=== PATIENT | male | born 1955 | race Caucasian/White ===

== ENCOUNTER 2018-09-03 09:57 | Day surgery (SDC) | END 2018-09-03 12:05 | disposition home or self-care (01) ==

== ENCOUNTER 2018-12-02 12:08 | Emergency (ER) | payer SELFPAY ==
[~2018-12-02] VITALS: Ht 162.6 cm; Wt 76.7 kg
[~2018-12-02 12:08] MED LIST: BENAZAPRIL; VITAMINS
[2018-12-02 12:14] VITALS: Ht 162.6 cm; Wt 76.7 kg
[2018-12-02] MEDS ORDERED: LIDOCAINE 1% (MDV) 20 ML INJ SC ONE (13:00)
--- NOTE | 2018-12-02 13:14 | EN ---
Date/Time of Note Date/Time of Note DATE: 12/02/18 TIME: 13:13 ER Progress Note Patient seen with TIAGO Thapa and evaluated independently. Patient is here for a sebaceaous cyst on his back. He states that with the sebaceous cyst on his back, he is having pain to the left front part of his chest. The pain is localized to the left anterior chest wall does not radiate. Pain is nonexertional and associated with no shortness of breath, fevers, chills, sputum production or any cardiac symptoms. He states the pain is related to the cyst. EKG reviewed by myself was normal Normal sinus rhythm Normal axis and intervals No ST elevation or depression Impression: Normal EKG Plan: Sebaceous cyst will be drained. Patient will have a troponin drawn and will be reassessed after the troponin and removal of the cyst to reevaluate. MAMTA GARCIA Dec 02, 2018 13:14
--- NOTE | 2018-12-02 14:25 | ERD ---
ER Documentation Chief Complaint Chief Complaint back abscess x 1 week HPI Patient is a 63-year-old male with a past medical history of hypertension who presents the ER for concerns of an abscess on his back for the last 3-4 months. Patient states over the last week the abscess has become larger and more painful. Patient is here with his daughter who states that the abscess site feels warm. Patient has no fevers or chills. Patient is also reporting anterior chest pain. He states he has had this pain for the last week. He denies any exertional pain. He denies any radiating pain. Patient denies any shortness of breath, left upper extremity pain, nausea, vomiting, diaphoresis, cough, hemoptysis or LOC. Patient feels as if his abscess pain is related to his chest pain. Patient denies any abdominal pain. Patient reports taking benazepril for his high blood pressure. Patient denies any headache, blurry vision. ROS All systems reviewed and are negative except as per history of present illness. Medications Home Meds Active Scripts Cephalexin* (Keflex*) 500 Mg Capsule, 500 MG PO BID for 7 Days, CAP Prov:ROMY MOHAMUD PA-C 12/02/18 Sulfamethoxazole/Trimethoprim* (Bactrim Ds* Tablet) 1 Each Tablet, 1 TAB PO BID, #14 TAB Prov:ROMY MOHAMUD PA-C 12/02/18 Reported Medications [Vitamins] No Conflict Check 09/03/18 [Benazapril] No Conflict Check 09/03/18 Allergies Allergies: Coded Allergies: No Known Allergy (Unverified , 09/03/18) PMhx/Soc History of Surgery: No Anesthesia Reaction: No Hx Neurological Disorder: No Hx Respiratory Disorders: No Hx Cardiac Disorders: Yes (HTN) Hx Psychiatric Problems: No Hx Miscellaneous Medical Probl: No Hx Alcohol Use: No Hx Substance Use: No Hx Tobacco Use: No Smoking Status: Never smoker FmHx Family History: No diabetes Physical Exam Vitals Vital Signs Date Temp Pulse Resp B/P (MAP) Pulse Ox O2 O2 Flow FiO2 Time Delivery Rate 12/02/18 98.2 76 18 123/68 97 Room Air 15:54 (86) 12/02/18 99.3 90 18 177/84 94 12:14 (115) Physical Exam GENERAL: Well-developed, well-nourished male. Appears in no acute distress. Speaking in full sentences HEAD: Normocephalic, atraumatic. EYES: Pupils are equally reactive bilaterally. EOMs grossly intact. No conjunct ival erythema. ENT: Moist mucous membranes. No uvula deviation. No kissing tonsils. NECK: Supple. No meningismus. Normal range of motion of the neck. LUNG: Clear to auscultation bilaterally. No rhonchi, wheezing, rales or coarse breath sounds. HEART: Regular rate and rhythm. No murmurs, rubs or gallops. EXTREMITIES: Equal pulses bilaterally. No peripheral clubbing, cyanosis or edema. No unilateral leg swelling. NEUROLOGIC: Alert and oriented. Moving all four extremities without any difficulty. Normal speech. Steady gait. SKIN: 1.5 cm round, abscess noted in the center of the patient's upper back. Slight surrounding erythema. Slight warmth. No streaking. Positive fluctuance. Result Diagram: 12/02/18 1410 12/02/18 1410 Results 24 hrs Laboratory Tests Test 12/02/18 14:10 White Blood Count 9.8 10^3/ul Red Blood Count 5.51 10^6/ul Hemoglobin 16.3 g/dl Hematocrit 47.5 % Mean Corpuscular Volume 86.2 fl Mean Corpuscular Hemoglobin 29.6 pg Mean Corpuscular Hemoglobin Concent 34.3 g/dl Red Cell Distribution Width 11.8 % Platelet Count 235 10^3/UL Mean Platelet Volume 10.2 fl Immature Granulocytes % 1.000 % Neutrophils % 67.0 % Lymphocytes % 21.6 % Monocytes % 8.0 % Eosinophils % 1.8 % Basophils % 0.6 % Nucleated Red Blood Cells % 0.0 /100WBC Immature Granulocytes # 0.100 10^3/ul Neutrophils # 6.6 10^3/ul Lymphocytes # 2.1 10^3/ul Monocytes # 0.8 10^3/ul Eosinophils # 0.2 10^3/ul Basophils # 0.1 10^3/ul Nucleated Red Blood Cells # 0.0 10^3/ul Sodium Level 140 mmol/L Potassium Level 4.6 mmol/L Chloride Level 100 mmol/L Carbon Dioxide Level 28 mmol/L Anion Gap 12 Blood Urea Nitrogen 17 mg/dl Creatinine 0.53 mg/dl Est Glomerular Filtrat Rate mL/min > 60 mL/min Glucose Level 125 mg/dl Calcium Level 9.5 mg/dl Troponin I < 0.012 ng/ml Current Medications Medications Dose Sig/[place] Start Time Status Last (Trade) Ordered Route PRN Stop Time Admin Dose Reason Admin Lidocaine 20 ml ONCE ONCE 12/02/18 DC (Xylocaine SC 13:00 12/02/18 1% (Mdv) 20 13:01 ml) Procedures/MDM ED COURSE: The patient was stable throughout ED course. I kept the patient and/or family informed of laboratory and diagnostic imaging results throughout the ED course. EKG: Read by Dr. Alston, attending physician. EKG shows normal sinus rhythm at a rate of 77 bpm. No arrhythmias, acute ST elevations or T wave changes were noted. DIAGNOSTIC IMAGING: Read by radiologist. Patient: GLORY CARRILLO : 1955 Age: 63 Sex: M MR #: [id number] DOS: 12/02/18 1254 Ordering MD: ROMY MOHAMUD PA-C Location: [facility] Room/Bed: PROCEDURE: XR Chest. CLINICAL INDICATION: Chest pain. TECHNIQUE: Single frontal view. COMPARISON: None. FINDINGS: The lungs are clear. The heart size is normal. There is no pleural effusion. There is no pneumothorax. IMPRESSION: 1. Normal chest radiograph. RPTAT: QQ .David Morales MD, Date Time Electronically viewed and signed by .David Morales MD, on 12/02/2018 13:24 .R/ CC: ROMY MOHAMUD PA-C [id number] PROCEDURES: INCISION AND DRAINAGE: The patient was verbally consented prior to procedure. Patient was explained the risks, benefits and alternatives to this procedure. Location: Upper back Abscess size: 1.5 cm round Anesthesia: local 1% lidocaine, 3 cc Preparation: The area was prepped in a sterile fashion using betadine x3 cleanses. A sterile field was prepared. Technique: A sterile 11 blade scalpel was used to make a 1 cm linear incision into the abscess. Procedure: A midline abscess incision was made using a sterile scalpel in a linear fashion. Purulent material was expressed with direct pressure. Blunt probing was used to break up loculations. Bleeding was minimal. Packing: None The patient tolerated the procedure well with no complications. The wound was dressed in sterile gauze. The patient was neurovascularly intact post-procedure. Post-procedural wound care was discussed with the patient. MEDICAL DECISION MAKING: This is a 63-year-old male with past medical history of hypertension presents the ER for concerns of a back abscess times 3-4 months. Patient states that this has been growing in size over the last week and has become more tender as well as erythematous. Patient also reports anterior chest pain for the last week. Patient states he does feel as if his abscess is causing him this chest pain. Vital signs were reviewed. Patient was afebrile. Patient was not hypoxic. Patient's blood pressure was elevated at 177/84. Blood pressure was noted to down trend prior to discharge. Given that the patient reported chest pain, I did discuss the case with my supervising physician Dr. Alston. Dr. Alston, spoke with both the patient and his daughter. Patient told myself as well as Dr. Alston that he felt that his chest pain was related to his cyst. Patient was advised after incision and drainage we would reevaluate his chest pain and if it persisted, we would admit him for further workup and management of his chest pain. Prior to incision and drainage, blood work, EKG and chest x-ray were obtained. EKG showed normal sinus rhythm. No ST elevations were noted. Reviewed and signed off by supervising physician. Chest x-ray was unremarkable. CBC showed no signs of systemic infection or anemia. BMP showed no evidence of severe electrolyte abnormalities, acidosis, alkalosis or renal injury. Troponin was within normal limits. Incision and drainage was performed on the patient's sebaceous cyst. Large amounts of purulent discharge were expressed from site. Patient was advised he will need to follow-up with a boiler engineer for further management of his cyst and complete removal of it. Patient will be treated with a course of Keflex and Bactrim for further management of his cyst. Approximately 1 hour after incision and drainage was performed, I reevaluated the patient after all his blood work had resulted. Patient stated he no longer had any chest pain. I advised the patient and his daughter that they should continue to monitor the patient's symptoms closely and if he developed any new or worsening chest pain, shortness of breath, nausea, vomiting, left upper extremity pain, diaphoresis or loss of consciousness they should return to the ER immediately. Patient and daughter were agreeable with this plan. Patient was also encouraged to follow-up with engraver pantograph on outpatient basis. At this time, low suspicion for ACS, arrhythmia, pericarditis, PE, pneumothorax, pneumonia, pleural effusion, aortic dissection. Low suspicion for deep space infection, fistula formation or sepsis. Patient was nontoxic, non-opening prior to discharge. PRESCRIPTIONS: Keflex, Bactrim DISCHARGE: At this time, patient is stable for discharge and outpatient management. I have instructed the patient to follow-up with his/her primary care physician in 1-2 days. If symptoms persist, patient may need to see a specialist for further examinations and testing. I have instructed the patient to promptly return to the ER at any time for any new or worsening symptoms including increased increased pain, fever, nausea, vomiting, numbness, weakness, diaphoresis or LOC. The patient and/or family expressed understanding of and agreement with this plan. All questions were answered. Home care instructions were provided. Disclaimer: Inadvertent spelling and grammatical errors are likely due to EHR/dictation software use and do not reflect on the overall quality of patient care. Also, please note that the electronic time recorded on this note does not necessarily reflect the actual time of the patient encounter. Departure Diagnosis: Primary Impression: Infected sebaceous cyst Additional Impressions: Chest pain Chest pain type: unspecified Qualified Codes: R07.9 - Chest pain, unspecified Uncontrolled hypertension Condition: Stable Patient Instructions: Chest Pain, Uncertain Cause, Sebaceous Cyst, Infected (Abx Tx) Referrals: MED HIGGINS MD,MARISSA BAZAN,DAVID DOUGLAS,ROYA MA,KENTRELL CARDONA,KENTRELL Sierra [facility] YOU HAVE RECEIVED A MEDICAL SCREENING EXAM AND THE RESULTS INDICATE THAT YOU DO NOT HAVE A CONDITION THAT REQUIRES URGENT TREATMENT IN THE EMERGENCY DEPARTMENT. FURTHER EVALUATION AND TREATMENT OF YOUR CONDITION CAN WAIT UNTIL YOU ARE SEEN IN YOUR DOCTORS OFFICE WITHIN THE NEXT 1-2 DAYS. IT IS YOUR RESPONSIBILITY TO MAKE AN APPOINTMENT FOR FOLOW-UP CARE. IF YOU HAVE A PRIMARY DOCTOR --you should call your primary doctor and schedule an appointment IF YOU DO NOT HAVE A PRIMARY DOCTOR YOU CAN CALL OUR PHYSICIAN REFERRAL HOTLINE AT IF YOU CAN NOT AFFORD TO SEE A PHYSICIAN YOU CAN CHOSE FROM THE FOLLOWING [facility] [address] [facility] [address] [facility] [address] [facility] [address] [facility] [address] [facility]. [facility] [address] [facility]. [facility] YOU HAVE RECEIVED A MEDICAL SCREENING EXAM AND THE RESULTS INDICATE THAT YOU DO NOT HAVE A CONDITION THAT REQUIRES URGENT TREATMENT IN THE EMERGENCY DEPARTMENT. FURTHER EVALUATION AND TREATMENT OF YOUR CONDITION CAN WAIT UNTIL YOU ARE SEEN IN YOUR DOCTORS OFFICE WITHIN THE NEXT 1-2 DAYS. IT IS YOUR RESPONSIBILITY TO M ANGELO AN APPOINTMENT FOR FOLOW-UP CARE. IF YOU HAVE A PRIMARY DOCTOR --you should call your primary doctor and schedule and appointment IF YOU DO NOT HAVE A PRIMARY DOCTOR YOU CAN CALL OUR PHYSICIAN REFERRAL HOTLINE AT . IF YOU CAN NOT AFFORD TO SEE A PHYSICIAN YOU CAN CHOSE FROM THE FOLLOWING [facility]: [facility] [address] [place] [address] [facility] [address] [place] [address] [facility] [address] [place] [address] Additional Instructions: Antibiotics as prescribed. Follow-up with a boiler engineer on outpatient. Call your primary care doctor TOMORROW for an appointment during the next 1-2 days.See the doctor sooner or return here if your condition worsens before your appointment time. ROMY MOHAMUD PA-C Dec 02, 2018 14:25
[2018-12-02] MEDS ORDERED: SULF1TAB31 PO (15:14)
[2018-12-02] MEDS ORDERED: CEPH-443 PO (15:14)
[2018-12-02 15:54] VITALS: BP 123/68; PULSE 76; RESP 18
== END 2018-12-02 15:56 | disposition home or self-care (01) ==
LOC: FTE 12:08
DX: L72.3 Sebaceous cyst (principal); I10 Essential (primary) hypertension; R07.9 Chest pain, unspecified; L08.89 Other specified local infections of the skin and subcutaneous tissue
CPT/HCPCS: 36415; 71045; 80048; 84484; 85025; 93005